=== PATIENT | female | born 1940 ===

== ENCOUNTER 2024-07-15 08:20 | Day surgery (SDC) | payer OTHER, SELFPAY ==
[2024-07-11 11:25] LABS: Hematocrit 38.6 % (37.0-47.0); Hemoglobin 12.7 g/dL (12.0-16.0); Mean Corp Hgb Conc. 32.9 g/dL (33.0-37.0); Mean Corpuscular Hgb 30.5 pg (27.0-31.0); Mean Corpuscular Volume 92.8 fL (81.0-99.0); Mean Platelet Volume 10.9 fL (7.4-10.4); Platelet Count 262 10^3/uL (130-400); Red Blood Cell Count 4.16 10^6/uL (4.20-5.40); Red Cell Dist. Width 12.5 % (11.5-14.5); White Blood Cell Count 9.6 10^3/uL (4.8-10.8)
[2024-07-11 12:04] LABS: Blood Urea Nitrogen 18 mg/dl (7-17); Calcium 9.7 mg/dl (8.4-10.2); Carbon Dioxide 26 mmol/L (22-30); Chloride 104 mmol/L (98-107); Glucose 91 mg/dl (70-99); Potassium 4.1 mmol/L (3.5-5.1); Sodium 143 mmol/L (135-145); eGFR 44.91
[2024-07-11 14:19] VITALS: BMI 26.1
[2024-07-15] VITALS (7 sets, daily range): BP systolic 131–180; BP diastolic 60–82; BMI 26.1
[2024-07-15 13:13] LABS: Glucose - Point of Care 97 mg/dl (70-99)
[2024-07-15] MEDS: Pyridium 200 MG PO (13:19)
[2024-07-15] MEDS: NORMOSOL-R/PLASMALYTE-A 1000 IV (13:19)
[2024-07-15 14:48] LABS: Glucose - Point of Care 79 mg/dl (70-99)
[2024-07-15 17:28] LABS: Glucose - Point of Care 80 mg/dl (70-99)
== END 2024-07-15 18:55 | disposition home or self-care (01) ==
LOC: SDS 08:20
PROVIDERS: ATTENDING PHYSICIAN Obstetrics & Gynecology; FAMILY PHYSICIAN Physician Assistant Medical
DX: N39.3 Stress incontinence (female) (male) (principal); N36.41 Hypermobility of urethra
CPT/HCPCS: 57288; 36415; 80048; 82962; 85027; 86850; 86900; 86901; C1771